=== PATIENT | female | born 1965 | race Caucasian/White ===

== ENCOUNTER 2021-02-09 17:13 | Emergency (ER) | payer MEDICARE ==
--- OUTSIDE RECORDS SUMMARY | 2021-02-09 17:18 | XMS REPORT | Clinical Summary ---
Author Author [facility] Organization [facility] Address Unknown Phone Unavailable Care Team Providers Care Senior Security Architect Name Role Phone Jama Castrejon MD PCP Jayjay Jose MD Unavailable Source Comments Some departments are not documenting in the electronic medical record. If you d o not see the information that you expected, contact Release of Information in formerly [facility] Health Information Management department at [phone] for further assistan ce in locating additional records.[facility] Allergies No known active allergies Medications End Date Status Medication Sig Dispensed Refills Start Date Active oxyCODONE (ROXICODONE, Take 1 tablet 10 tablet 0 0 OXY-IR) 5 mg tablet by mouth 8 every 4 hours as needed for Pain Active Problems Not on file Social History Date Tobacco Use Types Packs/Day Years Used Current Every Day Smoker Smokeless Tobacco: Never Used Comments Alcohol Use Standard Drinks/Week Yes 0 (1 standard drink = 0.6 o z pure alcohol) Sex Assigned at Date Recorded Not on file Last Filed Vital Signs Reading Time Taken Comments Vital Sign 155/89 05/06/2017 11:30 PM DISPATCH LEAD Blood Pressure 97 05/06/2017 9:25 PM DISPATCH LEAD Pulse 37.1 C (98.7 F) 05/06/2017 9:25 PM DISPATCH LEAD Temperature - - Respiratory Rate 97% 05/06/2017 11:30 PM DISPATCH LEAD Oxygen Saturation - - Inhaled Oxygen Concentration 61.2 kg (135 lb) 05/06/2017 9:25 PM DISPATCH LEAD Weight - - Height - - Body Mass Index Plan of Treatment Health Maintenance Due Date Last Done Comments HIV SCREENING 1981 DTAP/TDAP VACCINES (1 - 1984 Tdap) HEPATITIS C SCREENING 1984 PHYSICAL (COMPREHENSIVE) 1984 EXAM CERVICAL CANCER SCREENING 12/21/1987 BREAST CANCER SCREENING 2006 COLORECTAL CANCER 2016 SCREENING SHINGLES RECOMBINANT 2016 VACCINE (1 of 2) INFLUENZA VACCINE 10/05/2020 Results Not on filefrom Last 3 Months Insurance Type Payer Benefit Subscriber ID Effective Phone Address Plan / Dates Group Medicaid [facility] MEDICAID [facility] [id number] 2017-P [address] [place] [address] [phone] Advance Directives 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
--- OUTSIDE RECORDS SUMMARY | 2021-02-09 17:18 | XMS REPORT | Clinical Summary ---
Author Author [facility] Organization [facility] Address Unknown Phone Unavailable Care Team Providers Care Charting Clerk Name Role Phone Johnathan Brown MD PCP Allergies No known active allergies Medications End Date Status Medication Sig Dispensed Refills Start Date Active amLODIPine (NORVASC) 5 MG Take 10 mg by 0 tabletIndications: mouth daily. hypertension Active metoprolol tartrate Take 50 mg by 0 (LOPRESSOR) 50 MG tablet mouth 2 (two) times a day. Active losartan (COZAAR) 50 MG Take 50 mg by 0 tablet mouth daily. Active venlafaxine (EFFEXOR-XR) Take 150 mg 0 150 mg ER 24 hr capsule by mouth daily. Active oxyCODONE-acetaminophen Take 1 tablet 0 (PERCOCET) 10-325 mg per by mouth tabletIndications: pain every 6 (six) hours as needed for pain. Active nicotine (NICODERM CQ) 14 Place 1 patch 28 patch 0 mg/24 hr patch on the skin 0 daily. Active levETIRAcetam (KEPPRA) Take 1 tablet 60 tablet 0 0 1000 MG tablet (1,000 mg 0 total) by mouth 2 (two) times a day. Active Problems Problem Noted Date Drug abuse 05/29/2019 Last Assessment & Plan: Formatting of this note might be differ ent from the original. UDS positive for: Benzos, antidepressan ts, OxyContin and Phencyclidine. Other major potential complications of PCP intoxication include hyperthermia, seizures, rhabdomyolysis, and hypertension. We will monitor for those. Extensive counseling regarding drug abu se and prescription medication abuse. Chest pain 05/28/2019 Last Assessment & Plan: Formatting of this note might be differ ent from the original. Troponin less than 0.01. EKG shows sin us rhythm with a heart rate in the 80s, nonspecific T wave abnormality. Medical records from [facility] ter have been requested. Awaiting to get the report. Syncopal episodes 05/28/2019 Last Assessment & Plan: Formatting of this note might be differ ent from the original. Patient will be placed in observation s tatus Awaiting for medical records from [facility] Most likely this is secondary to Benzo s, antidepressants, OxyContin and Phencyclidine intake. Seizure precautions Seizure disorder 05/28/2019 Last Assessment & Plan: Formatting of this note might be differ ent from the original. Reported history of seizure disorder Unsure if this represents seizure versu s syncopal episode CT head showed: No acute intracranial f indings including mass or hemorrhage. We will place in seizure precautions Neurology consult pending Continue Keppra IV Essential hypertension 05/28/2019 Last Assessment & Plan: Formatting of this note might be differ ent from the original. Continue metoprolol, ARB, and amlodipin e Monitor blood pressure and make adjustm ents as needed Leukocytosis 05/28/2019 Last Assessment & Plan: Formatting of this note might be differ ent from the original. White blood cell count elevated on admi ssion Trending down, continue to monitor Hypercalcemia 05/28/2019 Last Assessment & Plan: Formatting of this note might be differ ent from the original. Calcium very mildly elevated 10.6 on ad mission. Resolved with IV fluids. Continue to monitor calcium level Tobacco user 05/28/2019 Last Assessment & Plan: Formatting of this note might be differ ent from the original. Counseled about smoking cessation for 4 minutes: Pt is aware of smoking consequences regarding lung, mouth and pharynx, esophagus We discussed potential different items to stop tobacco use which include nicotine replacement therapy Resolved Problems Problem Noted Date Resolved Date Lactic acidosis 05/28/2019 05/29/2019 Last Assessment & Plan: Formatting of this note might be differ ent from the original. Suspect this is due to hypovolemia We will repeat lactic acid Give IV fluids Family History Medical History Relation Name Comments Heart attack Father Aneurysm Mother Relation Name Status Comments Father Mother Social History Date Tobacco Use Types Packs/Day Years Used Current Every Day Smoker Cigarettes 1 20 Smokeless Tobacco: Never Used Comments Alcohol Use Standard Drinks/Week Never 0 (1 standard drink = 0.6 o z pure alcohol) Alcohol Habits Answer Date Recorded How often do you have a drink containing alcohol? Never 11/22/2019 How many drinks containing alcohol do you have on No t asked a typical day when you are drinking? How often do you have six or more drinks on one Not asked occasion? Comment: Not asked Sex Assigned at Date Recorded Not on file Last Filed Vital Signs Reading Time Taken Comments Vital Sign 148/96 11/22/2019 2:21 AM CDT Blood Pressure 70 11/22/2019 2:21 AM CDT Pulse 36.9 C (98.4 F) 11/22/2019 1:08 AM CDT Temperature 18 11/22/2019 2:21 AM CDT Respiratory Rate 99% 11/22/2019 2:21 AM CDT Oxygen Saturation - - Inhaled Oxygen Concentration 53.5 kg (118 lb) 11/22/2019 1:08 AM CDT Weight 162.6 cm (5' 4") 11/22/2019 1:08 AM CDT Height 20.25 11/22/2019 1:08 AM CDT Body Mass Index Plan of Treatment Health Maintenance Due Date Last Done Comments Td/Tdap# 1965 Tobacco Cessation 1965 Counseling # Pneumococcal Vaccine: 1972 Pediatrics (0 to 5 Years) and At-Risk Patients (6 to 64 Years) (1 of 2 - PPSV23) COVID-19 Vaccine (1) 1978 Colorectal Screening via 2016 Colonoscopy Mammogram Screening 2016 Zoster Vaccine# (1 of 2) 2016 Influenza Vaccine (#1) 2020 12/08/2017 Results Not on filefrom Last 3 Months Insurance Type Payer Benefit Subscriber ID Effective Phone Address Plan / Dates Group MEDICAID MANAGED CARE [facility] [id number] 2018-P [address] [place] [address] [id number] Nunu Fisher Personal/F Self 1965 [address] (Home) [place], [place] [address] Advance Directives For more information, please contact: [phone] Patient 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
[2021-02-09] MEDS ORDERED: HYDROcodone/APAP 5 MG/325 MG (LORTAB) TAB PO ONE ×2 (18:00→18:45)
[2021-02-09] MEDS ORDERED: HYDROcodone/APAP 5 MG/325 MG (LORTAB) TAB ONE (18:31)
--- NOTE | 2021-02-09 18:54 | Diagnostic Imaging Report ---
EXAMINATION: Pelvis 1 or 2 views HISTORY: Pelvic injury COMPARISON: None available. FINDINGS: Alignment is normal. No fracture is seen. Joint spaces are normal. IMPRESSION: 1. No fracture. Dictated by: Dictated on workstation # [id number]
--- NOTE | 2021-02-09 18:54 | Diagnostic Imaging Report ---
EXAMINATION: Lumbar spine, four views. HISTORY: Back injury. COMPARISON: None available. FINDINGS: There is mild dextrocurvature of the lumbar spine. There has been vertebroplasty of L2. Vertebral body heights are normal. There is mild L4-L5 and L5-S1 degenerative disc disease. Aorta is atherosclerotic. No acute fracture is seen. IMPRESSION: 1. Vertebroplasty of an old L2 compression fracture. No acute fracture is seen. Dictated by: Dictated on workstation # [id number]
--- NOTE | 2021-02-09 19:16 | ED General ---
General Chief Complaint: Back Problems Stated Complaint: FALL; BACK PAIN Nursing Triage Note: PTS POP UP CAMPER CAME OFF THE MIRIAN AND FELL TO THE GROUND. SHE WAS TEENA AND HAS RGHT SIDE LOWER BACK PAIN. History of Present Illness Date Seen by Provider: Feb 09, 2021 Time Seen by Provider: 17:30 Initial Comments Patient presenting to the emergency department for evaluation of back pain and pelvis pain status post standing up in her camper in the camper fell off a mirian while she was standing in it and she said it jolted her and she fell on her bottom and now she hurts in her pelvis and low back. She denies any head neck chest abdomen back or other extremity pain and no saddle anesthesia bowel or bladder incontinence weakness numbness or tingling. She is able to ambulate but she says it hurts in her low back when she ambulates. She is in no acute distress. Allergies and Home Medications Allergies Coded Allergies: No Known Drug Allergies (Unverified , 02/09/21) Patient Home Medication List Home Medication List Reviewed: Yes Review of Systems Review of Systems Constitutional: no symptoms reported Respiratory: no symptoms reported Cardiovascular: no symptoms reported Gastrointestinal: no symptoms reported Musculoskeletal: back pain Skin: no symptoms reported Psychiatric/Neurological: No Symptoms Reported Past Xynhxob-Fnokky-Atxkct Hx Patient Social History Tobacco Use?: Yes Tobacco type used: Cigarettes Use of E-Cig and/or Vaping dev: No Substance use?: No Alcohol Use?: No Physical Exam Vital Signs Vital Signs - First Documented 02/09/21 17:35 Temp 36.4 Pulse 105 Resp 20 B/P (MAP) 159/112 (128) Pulse Ox 99 O2 Delivery Room Air Capillary Refill : Less Than 3 Seconds Height, Weight, BMI Height: '" Weight: lbs. oz. kg; BMI Method: General Appearance: No Apparent Distress, WD/WN Neck: Non Tender, Supple Respiratory: No Respiratory Distress Cardiovascular: Regular Rate, Rhythm Gastrointestinal: Non Tender, Soft Back: Other (Midline and paraspinal lumbar tenderness to palpation but no obvious step-off or deformity) Extremity: Normal Capillary Refill Neurologic/Psychiatric: Alert, Oriented x3, No Motor/Sensory Deficits, Other (Patient able to ambulate with a steady gait slightly hunched over) Skin: Warm/Dry Progress/Results/Core Measures Suspected Sepsis SIRS Temperature: Pulse: 105 Respiratory Rate: 20 Blood Pressure 159 /112 Mean: 128 Results/Orders My Orders Orders - RONAN MCDANIEL DO Lumbar Spine 4 View Or More (02/09/21 17:52) Pelvis (Ap) (02/09/21 17:52) Hydrocodone/Apap 5/325 Tablet (Lortab 5 (02/09/21 18:31) Hydrocodone/Apap 5/325 Tablet (Lortab 5 (02/09/21 18:45) Medications Given in ED Current Medications Medications Dose Ordered Sig/Joanna Route Start Time Stop Time Status Last Admin Dose Admin Acetaminophen/ Hydrocodone Bitart 2 ea ONCE ONCE PO 02/09/21 18:45 02/09/21 18:46 DC 02/09/21 18:39 2 EA Vital Signs/I&O 02/09/21 17:35 Temp 36.4 Pulse 105 Resp 20 B/P (MAP) 159/112 (128) Pulse Ox 99 O2 Delivery Room Air Capillary Refill : Less Than 3 Seconds Blood Pressure Mean: 128 Progress Note : Progress Note Patient has no red flag signs or symptoms necessitating an emergent MRI and her imaging is negative here and her pain is improved so she will be discharged in stable condition told to take NSAIDs for pain follow with primary care provider within 2 to 3 days for recheck and come back to emergency department sooner with worsening pain neurologic changes with general concerns. Patient aware and agreeable plan and verbalized understanding of the above instructions. Departure Impression Primary Impression: Lumbar sprain Qualified Codes: S33.5XXA - Sprain of ligaments of lumbar spine, initial en counter Disposition: 01 HOME, SELF-CARE Condition: Stable Departure-Patient Inst. Referrals: MYNOR PETIT DO (PCP/Family) Primary Care Physician Patient Instructions: Low Back Pain (DC) Add. Discharge Instructions: Take 600mg of ibuprofen every 6 hours for pain and the norco for breakthrough pain. Follow with PCP later this week for recheck. All discharge instructions reviewed with patient and/or family. Voiced understanding. Scripts Hydrocodone/Acetaminophen (Hydrocodone-Acetamin 5-325 mg) 1 Each Tablet 1 TAB PO Q4H PRN for PAIN-MODERATE (5-7), #10 TAB Prov: RONAN MCDANIEL DO 02/09/21 RONAN MCDANIEL DO Feb 09, 2021 19:16
[2021-02-09] MEDS ORDERED: ACHD5005 PO (19:17)
[2021-02-09 19:20] VITALS: BP 146/98
== END 2021-02-09 19:20 | disposition home or self-care (01) ==
LOC: EDUNIT# 17:13 → ER FS 17:15
DX: S33.5XXA Sprain of ligaments of lumbar spine, initial encounter (principal); Z72.0 Tobacco use; W18.30XA Fall on same level, unspecified, initial encounter
CPT/HCPCS: 72110; 72170

== ENCOUNTER 2021-11-23 19:12 | Emergency (ER) | payer MEDICARE, OTHER ==
[~2021-11-23] VITALS: Ht 160 cm; Wt 60.0 kg
[~2021-11-23 19:12] MED LIST: ACHD5005 PO
--- NOTE | 2021-11-23 19:32 | ED Back Pain ---
General Chief Complaint: Back Problems Stated Complaint: BACK PAIN Source of Information: Patient Exam Limitations: No Limitations History of Present Illness Date Seen by Provider: Nov 23, 2021 Time Seen by Provider: 19:29 Initial Comments 55-year-old female presents to the emergency department today for mid low back pain. She had spinal fusion surgery about 12 weeks ago at [facility]. She states she stepped off a curb and twisted her ankle causing her back to general. She did not actually fall down but has increased pain in her mid back at her surgical site after the event. Incident happened at about 3:00 this afternoon. She took 800 mg of ibuprofen prior to arrival which has not seemed to help her. Pain is described as dull throbbing without radiation. Aggravated by weightbearing or twisting motions, relieved by rest somewhat. She denies any new weakness numbness or tingling in her bilateral lower extremities. No saddle anesthesia. No loss of bowel bladder control pain is mild to moderate. She states she called her surgeon who recommended that she be evaluated Allergies and Home Medications Allergies Coded Allergies: No Known Drug Allergies (Unverified , 02/09/21) Patient Home Medication List Home Medication List Reviewed: Yes Alendronate Sodium (Alendronate Sodium) 70 Mg Tablet, (Reported) Entered as Reported by: PITER DEL REAL on 11/23/211955 Last Action: New Order Amlodipine Besylate (Amlodipine Besylate) 10 Mg Tablet, (Reported) Entered as Reported by: PITER DEL REAL on 11/23/211955 Last Action: New Order Celecoxib (Celecoxib) 200 Mg Capsule, (Reported) Entered as Reported by: PITER DEL REAL on 11/23/211955 Last Action: New Order Clonazepam (Clonazepam) 0.5 Mg Tablet, (Reported) Entered as Reported by: PITER DEL REAL on 11/23/211955 Last Action: New Order Cyclobenzaprine HCl (Cyclobenzaprine HCl) 10 Mg Tablet, (Reported) Entered as Reported by: PITER DEL REAL on 11/23/211955 Last Action: New Order Hydrocodone/Acetaminophen (Hydrocodone-Acetamin 5-325 mg) 1 Each Tablet, 1 TAB PO Q4H PRN for PAIN-MODERATE (5-7) Prescribed by: RONAN MCDANIEL on 02/09/211917 Omeprazole (Omeprazole) 20 Mg Capsule.dr (Reported) Entered as Reported by: PITER DEL REAL on 11/23/211955 Last Action: New Order Review of Systems Constitutional: no symptoms reported EENTM: no symptoms reported Respiratory: no symptoms reported Cardiovascular: no symptoms reported Gastrointestinal: no symptoms reported Genitourinary: no symptoms reported Musculoskeletal: back pain Skin: no symptoms reported Psychiatric/Neurological: No Symptoms Reported Past Blpounw-Ngaaqa-Pntygt Hx Patient Social History Tobacco Use?: Yes Substance use?: No Alcohol Use?: No Family Medical History Reviewed Nursing Family Hx No Pertinent Family Hx Physical Exam Vital Signs Vital Signs - First Documented 11/23/21 19:17 Temp 36.6 Pulse 114 Resp 18 B/P (MAP) 189/107 (134) Pulse Ox 97 O2 Delivery Room Air Capillary Refill : Height, Weight, BMI Height: '" Weight: lbs. oz. kg; BMI Method: General Appearance: No Apparent Distress, WD/WN HEENT: Normal ENT Inspection, Pharynx Normal Neck: Normal Inspection, Non Tender, Supple Cardiovascular: Regular Rate, Rhythm, No Edema, No Murmur, Normal Peripheral Pulses Respiratory: Chest Non Tender, Lungs Clear, Normal Breath Sounds, No Accessory Muscle Use Gastrointestinal: Normal Bowel Sounds, No Organomegaly, No Pulsatile Mass, Non Tender, Soft Back: Other (Tenderness palpation of the mid lumbar spine. Surgical incisions are well-healed without evidence for infection. Tenderness does seem to be at the L2-L3, 4 region. No obvious step-offs or deformity. No skin changes) Extremity: Normal Capillary Refill, Normal Inspection, Normal Range of Motion, Non Tender, No Calf Tenderness Neurologic/Psychiatric: Alert, Oriented x3, No Motor/Sensory Deficits Skin: Normal Color, Warm/Dry Progress/Results/Core Measures Results/Orders My Orders Orders - JEFFREY GALVEZ DO Ct Lumbar Spine Wo (11/23/21 19:28) Vital Signs/I&O 11/23/21 19:17 Temp 36.6 Pulse 114 Resp 18 B/P (MAP) 189/107 (134) Pulse Ox 97 O2 Delivery Room Air Diagnostic Imaging Diagonstic Imaging: CT Plain Films/CT/US/NM/MRI: other (L spine) Comments NAME: SHI FAIRCHILD MED REC#: [id number] PT STATUS: REG ER : 1965 PHYSICIAN: JEFFREY GALVEZ DO ADMIT DATE: 11/23/21/ER FS Draft Date of Exam:11/23/21 CT LUMBAR SPINE WO PROCEDURE: CT lumbar spine without contrast. TECHNIQUE: Multiple contiguous axial images were obtained through the lumbar spine without the use of intravenous contrast. Sagittal and coronal reformations were then performed. Auto Exposure Controls were utilized during the CT exam to meet ALARA standards for radiation dose reduction. INDICATION: Recent spinal surgery. No injury, back pain. EXAMINATION: CT lumbar spine 11/23/2021 COMPARISONS: None FINDINGS: There are bilateral interpedicular screws with intervening rods extending from L4 through S1. There is an interbody device at the L4-L5 and L5-S1 levels. The L4-L5 interbody device appears slightly posteriorly subluxed in relation to the inferior endplate at L4, age indeterminate. There are laminectomy changes on the right at the L5 level. No acute fractures. There is atrophy of the right kidney. There are nonobstructive stones left kidney. There is atherosclerotic disease. Kyphoplasty changes noted at L2. Remaining vertebral body heights maintained. IMPRESSION: 1. Postoperative changes as described above. No acute fractures appreciated. Dictated on workstation # [id number] Dict: 11/23/211957 Trans: 11/23/212005 [facility] [id number] Interpreted by: ALEX HARTLEY MD Departure Communication (Admissions) Patient is hemodynamically stable. Given her recent surgery we will had to do CT scan which shows no acute findings. She is neurologically intact with no other red flag symptoms. She is discharged in stable condition. Impression Primary Impression: Back pain Qualified Codes: M54.50 - Low back pain, unspecified; G89.29 - Other chronic pain Disposition: 01 HOME, SELF-CARE Condition: Stable Departure-Patient Inst. Decision time for Depature: 20:12 Referrals: MYNOR PETIT DO (PCP/Family) Primary Care Physician Patient Instructions: Low Back Pain (DC) Add. Discharge Instructions: Please use Motrin and Tylenol as needed for pain. Perform back exercises as shown and discussed. Return to the emergency department for any severe concerns. Follow-up with your back surgeon should your pain persist. Return immediately if you develop any severe pain, weakness numbness or tingling of your legs, loss of bowel or bladder control. All discharge instructions reviewed with patient and/or family. Voiced understanding. JEFFREY GALVEZ DO Nov 23, 2021 19:32
[2021-11-23] MEDS ORDERED: ALEN70TA80 (19:56)
[2021-11-23] MEDS ORDERED: CLON0.5T4 (19:56)
[2021-11-23] MEDS ORDERED: CYCL10TA25 (19:56)
[2021-11-23] MEDS ORDERED: OMEP20CA18 (19:56)
[2021-11-23] MEDS ORDERED: AMLO-251 (19:56)
[2021-11-23] MEDS ORDERED: CELE-63 (19:56)
--- NOTE | 2021-11-23 20:07 | Diagnostic Imaging Report ---
PROCEDURE: CT lumbar spine without contrast. TECHNIQUE: Multiple contiguous axial images were obtained through the lumbar spine without the use of intravenous contrast. Sagittal and coronal reformations were then performed. Auto Exposure Controls were utilized during the CT exam to meet ALARA standards for radiation dose reduction. INDICATION: Recent spinal surgery. No injury, back pain. EXAMINATION: CT lumbar spine 11/23/2021 COMPARISONS: None FINDINGS: There are bilateral interpedicular screws with intervening rods extending from L4 through S1. There is an interbody device at the L4-L5 and L5-S1 levels. The L4-L5 interbody device appears slightly posteriorly subluxed in relation to the inferior endplate at L4, age indeterminate. There are laminectomy changes on the right at the L5 level. No acute fractures. There is atrophy of the right kidney. There are nonobstructive stones left kidney. There is atherosclerotic disease. Kyphoplasty changes noted at L2. Remaining vertebral body heights maintained. IMPRESSION: 1. Postoperative changes as described above. No acute fractures appreciated. Dictated by: Dictated on workstation # [id number]
[2021-11-23 20:25] VITALS: BP 176/90
== END 2021-11-23 20:25 | disposition home or self-care (01) ==
LOC: EDUNIT# 19:12 → ER FS 19:13
DX: M54.50 Low back pain, unspecified (principal); Z72.0 Tobacco use; Z98.890 Other specified postprocedural states; Z28.311 Partially vaccinated for COVID-19; X50.1XXA Overexertion from prolonged static or awkward postures, initial encounter
CPT/HCPCS: 72131